=== PATIENT | female | born 1940 | race Caucasian/White ===

== ENCOUNTER 2019-01-23 13:27 | Inpatient (IN) ==
[2019-01-23] MEDS ORDERED: VANCOMYCIN 1 GM/NS 1 GM/250 ML IVPB IV ONE ×2 (13:43→20:00)
[2019-01-23] MEDS ORDERED: ZOSYN 3.375 GM in NS 50 ML IV ONE (13:43)
[2019-01-23] MEDS ORDERED: NS 1,000 ML IV ONE (13:46)
[2019-01-23] MEDS ORDERED: TYLENOL PR ONE ×2 (13:47→13:48)
[2019-01-23 14:01] LABS: ALLEN TEST YES; BE 9.8 mmoll (-3.0-3.0); BLOOD TYPE ARTERIAL; HCO3-(ACT) 32.5 mmoll (20.0-26.0); METHB 1.7 % (0.0-1.5); O2(CT) 18.2 mL/dL (15.0-23.0); O2HB 95.8 % (95.0-99.0); PO2(98.6) 242 mmHg (60-100); SAMPLE BLOOD; SAO2 99.8 % (95.0-100.0); THB 13.1 g/dL (11.5-17.4); pH(98.6) 7.42 (7.35-7.45)
[2019-01-23 14:02] LABS: MODALITY PRB; PCO2(98.6) 56 mmHg (35-45)
--- NOTE | 2019-01-23 14:23 | Diag Imaging Result Doc PS360 ---
EXAM: CHEST-PORTABLE INDICATION: fever TECHNIQUE: One view COMPARISON: 01/13/2019 FINDINGS: There is stable elevation of the right hemidiaphragm. No well-defined infiltrates are identified. There is no discrete pleural fluid collection or pneumothorax. There is stable cardiomegaly. IMPRESSION: Stable cardiomegaly and elevation of the right hemidiaphragm. No definite acute pathology by plain radiograph. Electronically signed by Golden Gruber 01/23/2019 2:21 PM
[2019-01-23 14:28] LABS: URINE SOURCE CATH
[2019-01-23 14:38] LABS: BILIRUBIN URINE NEGATIVE (NEGATIVE); BLOOD URINE TRACE (NEGATIVE); COLOR YELLOW; GLUCOSE URINE TRACE mg/dL (NEGATIVE); KETONE URINE TRACE mg/dL (NEGATIVE); LEUKOCYTES URINE NEGATIVE (NEGATIVE); NITRITE URINE NEGATIVE (NEGATIVE); PH URINE 7.5; PROTEIN URINE 100 mg/dL (NEGATIVE); SP GRAVITY URINE 1.007; TURBIDITY URINE CLEAR (CLEAR); UR EPITHELIAL CELLS <10 /HPF (<10); URINE BACTERIA NEGATIVE /HPF; URINE RBC <10 /HPF (<10); URINE WBC <10 /HPF (<10); UROBILINOGEN URINE NORMAL (NORMAL)
[2019-01-23 15:05] LABS: INR 1.01; PROTIME 14.1 Seconds (11.0-16.0)
[2019-01-23 15:06] LABS: ESTIMATED GFR > 60; PTT 35.7 Seconds (22.3-41.8)
[2019-01-23 15:12] LABS: AGAP 15; ALB/GLOB RATIO 1.2; ALBUMIN 3.6 g/dL (3.5-5.0); ALKALINE PHOSPHATASE 102 U/L (32-104); BUN 13 mg/dL (8-22); CALCIUM 9.1 mg/dL (8.8-10.2); CHLORIDE 88 mmol/L (98-107); CK PROFILE 46 U/L (24-173); COSMO 277; CREATININE 0.5 mg/dL (0.5-0.9); GLUCOSE 256 mg/dL (70-104); GOT 20 U/L (10-30); GPT 6 U/L (10-36); POTASSIUM 3.9 mmol/L (3.5-5.1); SODIUM 134 mmol/L (136-145); TCO2 31 mmol/L (25-35); TOTAL BILIRUBIN 0.66 mg/dL (0.20-1.00); TOTAL PROTEIN 6.7 g/dL (6.3-8.3)
[2019-01-23 15:24] LABS: BASO# 0.05 X1000 (0.0-0.2); BASO% 0.3 % (0.0-0.8); EOS# 0.03 X1000 (0.0-0.7); EOS% 0.2 % (0.0-10.0); HEMATOCRIT 36.8 % (37.0-47.0); HEMOGLOBIN 11.6 g/dL (12.0-16.0); IMM GRAN# 0.07 X1000 (0.0-0.04); IMM GRAN% 0.4 % (0.0-0.5); LYMPH# 1.79 X1000 (1.2-3.4); LYMPH% 9.7 % (20.5-51.1); MCHC 31.5 g/dL (33-37); MCV 88.7 FL (81-99); MONO# 0.85 X1000 (0.11-0.59); MONO% 4.6 % (1.7-9.3); NEUT# 15.58 X1000 (1.4-6.5); NEUT% 84.8 % (42.2-75.2); PLT 191 X1000 (130-400); RBC 4.15 XMIL (4.2-5.4); RDW 14.4 % (11.5-14.5); WBC 18.37 X1000 (4.8-10.8)
[2019-01-23 15:30] LABS: EOS 2 % (1-10); LYMPHS 14 % (21-51); MONO 2 % (1-9); SEGS 81 % (42-75)
--- NOTE | 2019-01-23 16:58 | PROVIDER DOCUMENTATION ---
This chart was entered by Lucina Evans Scribe, acting as scribe for Elmer Miranda MD. HPI-General Adult - General Chief Complaint: Shortness of Breath Stated Complaint: AMS, SOB Time Seen by Provider: 01/23/19 13:34 Source: family (Son), EMS Allergies/Adverse Reactions: Patient Allergies Allergy/AdvReac Type Severity Reaction Status Date / Time ciprofloxacin [From Cipro] Allergy Intermediate HIVES Verified 01/23/19 14:35 ciprofloxacin HCl * Allergy Intermediate HIVES Verified 01/23/19 14:35 [From Cipro] Sulfa (Sulfonamide Allergy Intermediate HIVES Verified 01/23/19 14:35 Antibiotics) Home Medications: Home Medication List Medication Instructions Recorded Confirmed Last Taken Type Febuxostat [Uloric] 40 mg PO DAILY 12/25/17 01/23/19 08/22/18 10:00 History Folic Acid 1 mg PO DAILY 12/25/17 01/23/19 08/22/18 10:00 History Insulin Aspart [Novolog Flexpen] 14 unit SQ QHS 12/25/17 01/23/19 08/21/18 19:30 History Omeprazole 40 mg PO DAILY 12/25/17 01/23/19 08/22/18 10:00 History Prednisone 5 mg PO DAILY 12/25/17 01/23/19 08/22/18 10:00 History Iron Carbonyl/Ascorbic Acid 1 tab PO DAILY #60 tab 12/30/17 01/23/19 08/22/18 10:00 Rx [Icar-C] Insulin Novolog 70/30 [Novolog Mix 17 unit SUBQ DAILY 08/22/18 01/23/19 08/22/18 10:00 History 70/30] Amiodarone [Cordarone] 200 mg PO DAILY 01/23/19 01/23/19 Unknown History Bupropion [Wellbutrin] 75 mg PO DAILY 01/23/19 01/23/19 Unknown History Hydrocodone Bit/Acetaminophen 1 tab PO TID 01/23/19 01/23/19 Unknown History [Hydrocodon-Acetaminophen 5-325] - History of Present Illness -Gen Adult Nature of Presenting Problems: 78 y/o obese female with history of diabetes, and pneumonia who presents by EMS with SOB, tachycardia, spitting up copious amounts of thick sputum, fever of 102.2, and room air sat of 83% on room air. Son states the patient was fine at 2100 hours last pm when he and his left. Son states he saw the patient again this am normal at 0800 then when he returned at 1100 the patient was very hot, confused, and SOB. EMS states blood sugar on arrival was 146 and O2 91% on 5 liters. Location of Pain/Injury: reports: generalized Onset/Duration: reports: other (1100) Timing: reports: still present Context/Activities at Onset: reports: light activity Modifying Factors: improves with: nothing Associated Symptoms: reports: cough, fever/chills, other (tachycardia) Similar Symptoms Previously?: No Recently seen or treated by another doctor?: No Review of Systems - Adult - REVIEW OF SYSTEMS - ADULT Constitutional: reports: fever, other (confused). denies: weight gain, weight loss Eyes: reports: no symptoms reported Ears, Nose, Mouth & Throat: reports: no symptoms reported Cardiovascular: reports: no symptoms reported Respiratory: reports: cough, shortness of breath, other (copious sputum) Gastrointestinal: denies: diarrhea, nausea, vomiting Genitourinary: reports: no symptoms reported Musculoskeletal: reports: no symptoms reported Integumentary: reports: no symptoms reported Neurological: reports: no symptoms reported Psychiatric: reports: no symptoms reported Endocrine: reports: no symptoms reported Hematologic/Lymphatic: reports: no symptoms reported Allergic/Immunologic: reports: no symptoms reported All Other Systems: Reviewed and Negative Past History - Adult - PAST MEDICAL HISTORY-ADULT Review of Records: reports: Old Records Reviewed, Medications Reviewed Major Childhood Illnesses: reports: denies history Cardiovascular: reports: A-Fib, HTN, hyperlipidemia Respiratory: reports: denies history Gastrointestinal: reports: diverticulosis, GERD, GI bleed Obstetrical/Gynecological: reports: denies history Genitourinary: reports: denies history Musculoskeletal: reports: arthritis Neurological: reports: denies history Endocrine/Immune: reports: Diabetes Other Conditions: reports: denies history - PRIOR SURGERIES/PROCEDURES Surgical/Procedure History: reports: recent surgery, appendectomy, cholecystectomy, orthopedic (extremity), joint replacement (total knee) - PRIOR HOSPITALIZATIONS Prior Hospitalizations: reports: for similar symptoms - IMMUNIZATION STATUS Childhood Immunizations: See Nurse Assessment Flu Vaccine: See Nurse Assessment - FAMILY HISTORY Family History: reviewed, not pertinent - SOCIAL HISTORY Smoking: denies Substance Use: none/never Physical Exam-General - PHYSICAL EXAM-ADULT Initial Vital Signs Reviewed: Yes - CONSTITUTIONAL General Appearance: alert, moderate distress, obese (morbidly) - EYES Eyes: PERRL/EOMI - HEAD, EARS, NOSE, MOUTH & THROAT HENMT: normocephalic/atraumatic - NECK Neck: full range of motion, supple - RESPIRATORY Respiratory: decreased breath sounds, rhonchi - CARDIOVASCULAR Cardiovascular: tachycardia - GASTROINTESTINAL (ABDOMEN) Abdominal Exam: tenderness (diffuse) - MUSCULOSKELETAL Back Exam: normal inspection, no CVA tenderness, no vertebral tenderness, other (no decubiti) Extremity: non-tender Peripheral Pulses: radial (R): 2+, radial (L): 2+ - SKIN Integumentary: normal color, normal turgor, warm/dry - NEUROLOGIC Neurologic: grossly normal - PSYCHIATRIC Psych/Mental Status: anxious Progress - PLAN OF CARE/RESULTS Progress/Plan/Lab Results: Vital Signs - 8 hr 01/23/19 13:30 Temperature 99.8 F H Pulse Rate 111 H Respiratory Rate 26 H Blood Pressure 189/98 O2 Sat by Pulse Oximetry 83 L Orders Category Date Time Status Dowd Cath Insertion ORDERED Care 01/23/19 13:43 Active Saline Loc NOW Care 01/23/19 13:34 Active CHEST-PORTABLE [RAD] Stat Exams 01/23/19 13:42 Ordered ABG [RESP] Routine Lab 01/23/19 13:44 Ordered BLOOD CULTURE [BLDCUL] Stat Lab 01/23/19 13:34 Uncollected CBC WITH DIFF [HEME] Stat Lab 01/23/19 13:34 Uncollected COMPREHENSIVE METABOLIC PANEL [CHEM] Stat Lab 01/23/19 13:34 Uncollected LACTATE, PLASMA [CHEM] Stat Lab 01/23/19 13:42 Uncollected URINALYSIS W/POSS RFLX CULT [URINALYSIS] Stat Lab 01/23/19 13:44 Uncollected Piperacillin/Tazobactam [Zosyn] 3.375 gm Med 01/23/19 13:43 Active 0.9% Sodium Chloride Inj [Ns] 50 ml IV NOW Vancomycin 1 gm/Ns Med 01/23/19 13:43 Active 1 gm in 250 ml IV NOW Pulse Oximetry Stat Oth 01/23/19 13:34 Active Result Diagrams: 01/23/19 13:52 01/23/19 13:52 - REASSESSMENT Reassessment #1 Time Reassessed: 17:15 Status: improving Reassessment Comment: repeat qdcy=118.5 - XRAY 1 XRAY Study: Chest Comparison with other Films: no changes (EXAM: CHEST-PORTABLE INDICATION: fever TECHNIQUE: One view COMPARISON: 01/13/2019 FINDINGS: There is stable elevation of the right hemidiaphragm. No well-defined infiltrates are identified. There is no discrete pleural fluid collection or pneumothorax. There is stable cardiomegaly. IMPRESSION: Stable cardiomegaly and elevation of the right hemidiaphragm. No definite acute pathology by plain radiograph. Electr onically signed by Golden Gruber 01/23/2019 2:21 PM) XRAY Interpretation: faint patchy lung infiltrates - CONSULTS/PCP/HOSPITALIST Notification #1 *Consult/PCP/Hospitalist*: Dr. Kidd, hospitalist Time Discussed: 17:20 Consult Disposition: Admit Departure - Departure Date of Disposition Decision: 01/23/19 Time of Disposition Decision: 17:24 DIAGNOSIS: Hypoxemia Pneumonia Qualifiers: Pneumonia type: due to unspecified organism Laterality: unspecified laterality Lung location: unspecified part of lung Qualified Code(s): J18.9 - Pneumonia, unspecified organism Disposition: ADMITTED INPATIENT 09 Certified Medical Emergency: Urgent Condition: Stable Referrals and Follow-Ups: Santos Young MD [Primary Care Provider] - - Critical Care Note This patient required my direct & personal management of CC.: Yes Total Time (mins): 65 Critical Care Statement: This patient required my direct personal management to treat or rule out processes, the absence of which, could potentiallly result in sudden, clinically significant life or limb threatening deterioration. Attestation - Physician/ JETT Attestation Patient care was provided by Advanced Practice Provider:: No The physician spent face to face time with patient:: Yes Advanced Practice Provider documentation review:: Supervising physician onsite and consulted in the evaluation and care of this patient. The physician did have a face to face encounter with the patient. This chart was documented by the indicated scribe, (Lucina Evans, Scrib e) and accurately reflects the services I performed and decisions made by me, Elmer Miranda MD, as attested by the provider's signature.
[2019-01-23] MEDS ORDERED: TYLENOL PO PRN (19:04)
[2019-01-23] MEDS ORDERED: VANCOMYCIN IV PER PHARMACY MISC SCH (19:04)
[2019-01-23] MEDS: DUONEB (A & A) INH SCH ×2 (19:32→23:05)
[2019-01-23] MEDS: NS 1,000 ML IV SCH (20:14)
[2019-01-23] MEDS: HUMALOG SUBQ SCH (20:15)
[2019-01-23] MEDS: LOVENOX SUBQ SCH (20:15)
[2019-01-23 20:40] LABS: URINE SOURCE CATH
[2019-01-23 20:45] LABS: BILIRUBIN URINE NEGATIVE (NEGATIVE); BLOOD URINE MODERATE (NEGATIVE); COLOR YELLOW; GLUCOSE URINE NEGATIVE (NEGATIVE); KETONE URINE TRACE mg/dL (NEGATIVE); LEUKOCYTES URINE LARGE (NEGATIVE); NITRITE URINE NEGATIVE (NEGATIVE); PH URINE 5.5; PROTEIN URINE 50 mg/dL (NEGATIVE); SP GRAVITY URINE 1.028; TURBIDITY URINE HAZY (CLEAR); UROBILINOGEN URINE NORMAL (NORMAL)
[2019-01-23 20:50] LABS: UR EPITHELIAL CELLS <10 /HPF (<10); URINE BACTERIA NEGATIVE /HPF; URINE RBC 20-40 /HPF (<10); URINE WBC TNTC /HPF (<10)
[2019-01-23 20:59] LABS: URINE CASTS NONE SEEN; URINE CRYSTALS NONE SEEN; URINE YEAST NONE SEEN
--- NOTE | 2019-01-23 21:51 | HISTORY AND PHYSICAL ---
CHIEF COMPLAINT: Dyspnea. HISTORY OF PRESENT ILLNESS: The patient is an 78-year-old female with history of morbid obesity, paroxysmal atrial fibrillation, diabetes, hypertension, hyperlipidemia, GERD, and questionable history of CHF. She presents with 6 days of symptoms. She initially began with sinus drainage and a nonproductive cough. Over the last day and a half, the cough has gotten significantly worse and is accompanied by progressive dyspnea. This morning, she began having significant production of dark brown sputum, and dyspnea progressed rapidly. She had some subjective fevers at home, and per her son who assists with the history, she became briefly confused, although this had resolved by the time they came to the ER. She denied nausea, vomiting, diarrhea, myalgias. Denied chest pain and diaphoresis. Denied night sweats. Because of her symptoms, she came to the ER for evaluation, and on presentation to the ED, the patient was found to be febrile, hypoxic with O2 saturations in the mid 80s. She was found to have leukocytosis. She was given initial treatment for presumed pneumonia. Chest x-ray was obtained but was a fairly poor quality film and did not show any definite infiltrate. We are asked to admit the patient for further evaluation. The patient denies any leg swelling. REVIEW OF SYSTEMS: Twelve-point review of systems negative except as per HPI. ALLERGIES: Ciprofloxacin and quinolones. PAST MEDICAL HISTORY: As per HPI. PAST SURGICAL HISTORY: Appendectomy, tonsillectomy, cholecystectomy, bilateral knee surgery, right humeral fracture repair, cataract surgery, left hand tendon repair, left femur fracture repair. SOCIAL HISTORY: The patient denies smoking, alcohol, or illicit drug use. FAMILY HISTORY: Father passed with heart failure. Mother also of unknown causes at 93 years old. LABORATORIES: WBC 18.3, hemoglobin 11.6, hematocrit 36.8, platelets 191,000. PT and INR unremarkable. ABG with pH 7.42, pCO2 of 56, pO2 of 242, O2 saturations 99 on 70% FiO2. Sodium 134, potassium 3.9, chloride 88, bicarb 31, BUN 13, creatinine 0.5, glucose 256, calcium 9.1, total bilirubin 0.66, AST 20, ALT 6, alkaline phosphatase 102. CK 46. Troponin 0.05. Total protein 6.7, albumin 3.6, lactate 1. Urinalysis unremarkable. IMAGING: Chest x-ray with stable cardiomegaly and elevation of the right hemidiaphragm. No definite acute pathology. On partial review by me, it appears to have very poor inspiration, and AP technique is somewhat limited by patient's body habitus. VITAL SIGNS: T-max 102.2 degrees, pulse 90, respirations 31, blood pressure 146/71 but has been as low as 81/68, O2 saturation currently 99% on 15 L. PHYSICAL EXAMINATION: GENERAL: No acute distress. Vitals as above. HEENT: Normocephalic, atraumatic. Moist mucous membranes. NECK: No cervical adenopathy. CARDIOVASCULAR: Regular rate, but the rhythm is bigeminy. No murmurs noted. PULMONARY: The patient's lungs are surprisingly clear within the limits of body habitus. Good air entry. No wheezing. ABDOMEN: Soft, nontender, nondistended. Bowel sounds present. EXTREMITIES: Peripheral pulses decreased but intact. No clubbing, cyanosis, or edema. No calf tenderness. No cords noted. NEUROLOGIC: Cranial nerves grossly intact. Globally weak but no focal deficits identified. PSYCHIATRIC: Asleep but easily arousable. Oriented x3. Normal mood and affect. Answers all questions appropriately and cooperative. SKIN: No new rashes or lesions identified. ASSESSMENT AND PLAN: 1. Sepsis, presumed pneumonia, [id number] hypoxic respiratory failure: Patient presenting with what clinically looks like pneumonia with fever, tachypnea, and increased oxygen requirements. No definite infiltrate on x-ray. We will obtain CT chest to clarify diagnosis and evaluate for other pathology. Started on vancomycin and Zosyn in the ED, which we will continue. Blood cultures obtained. Initial lactate negative. We will hydrate gently, given the questionable history of congestive heart failure. We will obtain echo to clarify if she actually has heart failure. Given intermittent mild hypotension in the setting of sepsis, we will watch closely in ICU overnight, but if blood pressure is stable overnight, then can likely go to the floor in the morning. Of note, the patient is on 2 to 3 L of oxygen at home. 2. Paroxysmal atrial fibrillation. Patient with paroxysmal atrial fibrillation by history. Her son reports that she has remained in normal sinus rhythm since being started on amiodarone. Rhythm currently bigeminy. Monitor on telemetry. Continue home amiodarone. 3. Diabetes mellitus. We will place on sliding scale insulin. Check hemoglobin A1c. Pattern blood sugars. 4. Hypertension. Son reports the patient has been on and off lisinopril-hydrochlorothiazide at home but has been taking it recently and took it this morning. We will hold for now, given intermittent hypotension in the ED. 5. Hyperlipidemia. The patient does not appear to be on a statin at home, but uncertain if the current medication list has been fully updated yet. We will check a lipid panel. 6. Morbid obesity and Pickwickian syndrome. We will residential substance abuse counselor the patient on diet and exercise once her acute illness has improved. Patient's ABG with what appears to be chronic hypercapnia. No history of significant smoking, so almost certainly Pickwickian syndrome. Continue to monitor respiratory status. 7. Gastroesophageal reflux disease. Continue PPI. 8. Hyponatremia, mild, asymptomatic. Will gently hydrate as above and monitor. 9. Deep vein thrombosis prophylaxis. Robby.
[2019-01-24] MEDS: ZOSYN 3.375 GM in NS 50 ML IV SCH ×4 (00:48→17:05)
[2019-01-24] MEDS: DUONEB (A & A) INH SCH ×6 (03:10→23:15)
[2019-01-24] MEDS: NORCO-5 PO PRN ×2 (03:41→22:07)
[2019-01-24 05:57] LABS: BASO# 0.05 X1000 (0.0-0.2); BASO% 0.3 % (0.0-0.8); EOS# 0.02 X1000 (0.0-0.7); EOS% 0.1 % (0.0-10.0); HEMATOCRIT 30.8 % (37.0-47.0); HEMOGLOBIN 9.6 g/dL (12.0-16.0); IMM GRAN# 0.08 X1000 (0.0-0.04); IMM GRAN% 0.5 % (0.0-0.5); LYMPH# 2.73 X1000 (1.2-3.4); LYMPH% 16.9 % (20.5-51.1); MCH 28.1 PG (27-31); MCHC 31.2 g/dL (33-37); MCV 90.1 FL (81-99); MONO# 0.79 X1000 (0.11-0.59); MONO% 4.9 % (1.7-9.3); MPV 11.3 FL (7.4-10.4); NEUT# 12.53 X1000 (1.4-6.5); NEUT% 77.3 % (42.2-75.2); PLT 199 X1000 (130-400); RBC 3.42 XMIL (4.2-5.4); RDW 14.6 % (11.5-14.5)
[2019-01-24 06:08] LABS: HEMOGLOBIN A1C 5.4 % (4.8-6.0)
[2019-01-24] MEDS: PRILOSEC PO SCH (06:11)
[2019-01-24] MEDS: HUMALOG SUBQ SCH ×4 (06:12→21:45)
[2019-01-24 06:30] LABS: CHOLESTEROL 127 mg/dL (0-200); HDL 57 mg/dL (45-65); LDL 55 mg/dL; TRIGLYCERIDES 76 mg/dL (35-135); VLDL 15 mg/dL
[2019-01-24 06:47] LABS: AGAP 15; ALB/GLOB RATIO 0.8; ALBUMIN 2.7 g/dL (3.5-5.0); ALKALINE PHOSPHATASE 76 U/L (32-104); BUN 19 mg/dL (8-22); CALCIUM 8.1 mg/dL (8.8-10.2); CHLORIDE 93 mmol/L (98-107); COSMO 278; CREATININE 0.6 mg/dL (0.5-0.9); ESTIMATED GFR > 60; GLUCOSE 162 mg/dL (70-104); GOT 10 U/L (10-30); GPT < 5 U/L (10-36); POTASSIUM 3.9 mmol/L (3.5-5.1); SODIUM 136 mmol/L (136-145); TCO2 28 mmol/L (25-35); TOTAL BILIRUBIN 0.51 mg/dL (0.20-1.00); TOTAL PROTEIN 6.2 g/dL (6.3-8.3)
[2019-01-24] MEDS: ULORIC PO SCH (08:47)
[2019-01-24] MEDS: CORDARONE PO SCH (08:47)
[2019-01-24] MEDS: PREDNISONE PO SCH (08:48)
[2019-01-24] MEDS: NS 1,000 ML IV SCH ×2 (08:48→22:08)
[2019-01-24] MEDS: WELLBUTRIN PO SCH (08:48)
--- NOTE | 2019-01-24 09:16 | Diag Imaging Result Doc PS360 ---
EXAM: CT THORAX W/O CONTRAST INDICATION: fever, hypoxia, ? pneumonia TECHNIQUE: This exam was performed using automated exposure control, adjustment of mA or kV according to patient size, and/or use of iterative reconstruction technique. COMPARISON: 11/25/2018 FINDINGS: There is stable chronic elevation of the right hemidiaphragm. There is chronic atelectasis and/or scarring involving the right lower lobe that has not changed. There is minimal subsegmental atelectasis at the left lung base that was not seen on the previous study. No airspace consolidations are appreciated, otherwise. There is no pleural fluid collection and no pneumothorax. There is extensive coronary artery atherosclerotic calcification and patchy aortic calcification. There is extensive mitral valve calcification. No significant mediastinal or hilar lymphadenopathy is appreciated. Review of the upper abdomen reveals a nodular liver contour suggesting possible cirrhosis, stable. IMPRESSION: 1.Chronic atelectasis and/or scarring involving the right lower lobe that is stable and minimal subsegmental atelectasis at the left lung base. 2.Incidental/nonacute findings detailed above. No definite acute pathology, otherwise. Electronically signed by Golden Gruber 01/24/2019 9:13 AM
--- NOTE | 2019-01-24 13:53 | PROGRESS NOTE ---
DATE: 01/24/2019 INTERVAL HISTORY: The patient with no further fever. Her oxygen requirements and subjective dyspnea significantly improved. On discussion with nursing, patient did have some mild confusion overnight but this appears to be largely resolved at this point. No new complaints. No other acute events overnight. REVIEW OF SYSTEMS: Twelve point review of systems negative except as per interval history. LABS: WBCs 16.2, hemoglobin 9.6, hematocrit 30.8, platelets 199,000. Sodium 136, potassium 3.9, BUN 19, creatinine 0.6, and glucose 162. IMAGING: CT of chest, chronic atelectasis and/or scarring along the right lower lobe that is stable, minimal atelectasis of the left lung base but no definite acute pathology. Nodular liver suggesting possible cirrhosis. VITALS: T-max 98.8, pulse 79, respirations 18, blood pressure 110/45, O2 saturation is 99% on 2 L by nasal cannula. PHYSICAL EXAMINATION: General: No acute distress. Vitals: As above. HEENT: Normocephalic, atraumatic. Moist mucous membranes. No cervical adenopathy. Cardiovascular: Regular rate and rhythm. Currently no murmurs noted. Pulmonary: Remained clear to auscultation within the limits of the body habitus. Abdomen: Soft, nontender, nondistended. Bowel sounds positive. Extremities: Peripheral pulses decreased but intact. No clubbing, cyanosis, or edema. Neurologic: Cranial nerves grossly intact. Globally weak but no focal deficits. Psychiatric: Awake, alert, oriented x3. Normal mood and affect. Cooperative and conversant. Skin: No new rash or lesions identified. ASSESSMENT AND PLAN: 1. Sepsis, presumed pneumonia, acute on chronic hypoxic respiratory failure: The patient presenting with what clinically appeared to be pneumonia with fever, tachypnea, leukocytosis, and increased oxygen requirements. The patient was started on vancomycin and Zosyn in the emergency department, which were continued. The patient does appear to have improved with this treatment overnight but neither chest x-ray nor CT showing any definite pneumonia. Given lack of diagnostic certainty, we will obtain CTA to rule out pulmonary thromboembolism as a cause of her symptoms. The patient is on 2 to 3 L of oxygen at home, which she is actually back down to now. 2. Paroxysmal atrial fibrillation. Patient with paroxysmal atrial fibrillation by history. Has been largely normal sinus rhythm with occasional bigeminy here. Continue home amiodarone. 3. Diabetes mellitus. A1c of 5.4. Continue on sliding scale insulin and monitor. 4. Hypertension. The patient reports taking lisinopril/hydrochlorothiazide at home. Has had mild hypotension here but has not required pressors. Continue gentle hydration. Continue holding home blood pressure medications. 5. Hyperlipidemia. Patient with hyperlipidemia by history but does not appear to be on a statin. Lipid panel essentially normal so this history may be in error. 6. Morbid obesity and pickwickian syndrome. Patient counseled on the importance of weight loss. Patient's admission ABG with what appears to be chronic hypercapnia. No history of significant smoking so appears to be pickwickian syndrome. 7. Gastroesophageal reflux disease. Continue proton pump inhibitor. 8. Hyponatremia, mild, asymptomatic, now resolved with intravenous fluids overnight. 9. Deep vein thrombosis prophylaxis. Lovenox. 10. Possible cirrhosis. The patient with no known history of alcohol abuse but certainly at risk for fatty liver. Given possible cirrhosis identified on CT, we will obtain ultrasound of the liver and monitor. If significant ascites seen, then spontaneous bacterial peritonitis could have been contributing to her sepsis noted on admission and may need further evaluation. LUBNA
--- NOTE | 2019-01-24 15:59 | Diag Imaging Result Doc PS360 ---
EXAM: CT ANGIOGRM PULMONARY ARTERIES INDICATION: dyspnea, hypoxia TECHNIQUE: This exam was performed using automated exposure control, adjustment of mA or kV according to patient size, and/or use of iterative reconstruction technique. Thin section axial images and 3-D MIPS were obtained. COMPARISON: Very recent CT chest without contrast dated 01/23/2019 FINDINGS: There is no evidence of pulmonary embolism. There is no evidence of aortic dissection or aneurysm. The heart and mediastinum are stable as compared to the very recent prior study. Chronic atelectasis in the right lower lobe and milder subsegmental atelectasis at the left lung base is essentially stable as compared to the recent prior study. No new consolidation is identified. Limited views of the upper abdomen are also stable. IMPRESSION: No evidence of pulmonary embolism. Stable chest as compared to the very recent unenhanced CT, otherwise. Electronically signed by Golden Gruber 01/24/2019 3:56 PM
--- NOTE | 2019-01-24 16:08 | Diag Imaging Result Doc PS360 ---
EXAM: US ABDOMEN-COMPLETE INDICATION: ?Lugo/cirrhosis COMPARISON: 12/29/2017 FINDINGS: Note that body habitus has significantly limited the diagnostic quality of this study. There has been a prior cholecystectomy. The common bile duct is normal in diameter. The contour of the liver appears somewhat nodular suggesting possible cirrhosis. The liver is difficult to acoustically penetrate. This is probably a combination of body habitus and at least some degree of hepatic steatosis. Portal venous flow is hepatopetal. The pancreas is obscured. Much of the aorta and IVC are obscured. The visualized portions are unremarkable. The spleen is unremarkable. The right kidney is obscured. The left kidney is grossly unremarkable as imaged. IMPRESSION: 1.Significantly limited study due to body habitus. 2.Liver with a vaguely nodular contour suggesting possible cirrhosis and poor acoustic penetration which could indicate at least mild hepatic steatosis. Electronically signed by Golden Gruber 01/24/2019 4:06 PM
[2019-01-24] MEDS: LOVENOX SUBQ SCH ×2 (17:05→18:30)
--- NOTE | 2019-01-24 18:10 | ECHO REPORT ---
ORDER DATE: 01/23/2019 INDICATIONS: Morbid obesity and hypertension. The patient weighs 250 pounds. Definity was added to the study to optimize visualization of the endocardium. M-MODE MEASUREMENTS: Left ventricle end diastole: 4.1 cm. Left ventricle end systole: 2.6 cm. Posterior wall: 1.0 cm. Interventricular septum: 1.0 cm. Left atrium: Not optimally visualized. The diameter appears to be 4.4. SUMMARY OF 2-DIMENSIONAL IMAGIN. The left ventricular chamber is normal. Ejection fraction is estimated at 65%. No wall motion abnormalities noted. 2. The mitral annulus was densely calcified. 3. The pulsed wave Doppler of mitral inflow shows reversal of E/A ratio at 0.7. 4. Tissue Doppler of septal and lateral mitral annulus appears to be normal. 5. The aortic valve is calcified with very mild degree of stenosis. The maximum gradient is 19 mm, mean gradient 9 mm. 6. The Aortic valve area is probably around 1.3 to 1.5 cm squared. 7. Pulmonic valve is unremarkable. 8. Tricuspid valve also appears to be unremarkable. 9. Pulmonary pressure seems to be within normal range. 10.Pulmonary pressure appears to be normal. 11.There is no pericardial effusion, masses or thrombus. IMPRESSION: In summary, the study shows: 1. Excellent left ventricular systolic function. Definity was used to opacify the left ventricular chamber. 2. Dense calcification of the mitral annulus with no significant regurgitation. 3. Diastolic function probably normal. 4. Pulmonary pressure probably normal. Clinical correlation recommended. cc: Yannick De Guzman MD MTDD
[2019-01-25] MEDS: ZOSYN 3.375 GM in NS 50 ML IV SCH ×3 (00:32→12:35)
[2019-01-25] MEDS: DUONEB (A & A) INH SCH ×4 (03:20→15:47)
[2019-01-25] MEDS: HUMALOG SUBQ SCH ×2 (06:40→12:22)
[2019-01-25] MEDS: PRILOSEC PO SCH (06:41)
[2019-01-25 07:29] LABS: BASO# 0.02 X1000 (0.0-0.2); BASO% 0.2 % (0.0-0.8); EOS# 0.06 X1000 (0.0-0.7); EOS% 0.6 % (0.0-10.0); HEMATOCRIT 29.8 % (37.0-47.0); IMM GRAN# 0.02 X1000 (0.0-0.04); IMM GRAN% 0.2 % (0.0-0.5); LYMPH# 1.31 X1000 (1.2-3.4); LYMPH% 14.1 % (20.5-51.1); MCH 27.1 PG (27-31); MCHC 30.2 g/dL (33-37); MCV 89.8 FL (81-99); MONO# 0.45 X1000 (0.11-0.59); MONO% 4.8 % (1.7-9.3); NEUT# 7.44 X1000 (1.4-6.5); NEUT% 80.1 % (42.2-75.2); PLT 170 X1000 (130-400); RBC 3.32 XMIL (4.2-5.4); RDW 13.9 % (11.5-14.5)
[2019-01-25 07:48] LABS: AGAP 10; BUN 13 mg/dL (8-22); CALCIUM 8.4 mg/dL (8.8-10.2); CHLORIDE 94 mmol/L (98-107); COSMO 272; CREATININE 0.7 mg/dL (0.5-0.9); ESTIMATED GFR > 60; GLUCOSE 157 mg/dL (70-104); POTASSIUM 3.6 mmol/L (3.5-5.1); SODIUM 134 mmol/L (136-145); TCO2 30 mmol/L (25-35)
[2019-01-25] MEDS ORDERED: VANCOMYCIN 1,800 MG in NS 250 ML IV SCH (08:00)
[2019-01-25] MEDS: CORDARONE PO SCH (08:31)
[2019-01-25] MEDS: ULORIC PO SCH (08:31)
[2019-01-25] MEDS: WELLBUTRIN PO SCH (08:31)
[2019-01-25] MEDS: PREDNISONE PO SCH (08:31)
--- NOTE | 2019-01-25 10:52 | EKG Report ---
Test Performed on : 01/23/2019 1:40:50 PM Test Reason : POSS SEPSIS Blood Pressure : / mmHG Vent. Rate : 108 BPM Atrial Rate : 108 BPM P-R Int : 172 ms QRS Dur : 112 ms QT Int : 348 ms P-R-T Axes : 044 006 028 degrees QTc Int : 466 ms Sinus tachycardia. with premature atrial complexes. Nonspecific ST abnormality Abnormal ECG When compared with ECG of 13-JAN-2019 18:23, (Unconfirmed) premature atrial complexes. are now present Vent. rate has increased BY 42 BPM Nonspecific T wave abnormality no longer evident in Anterior leads Unconfirmed Result
[2019-01-25 11:56] VITALS: BP 159/60
--- NOTE | 2019-01-25 15:30 | DISCHARGE SUMMARY ---
ADMISSION DATE: 01/23/2019 DISCHARGE DATE: 01/25/2019 CONSULTATIONS: None. PERTINENT PROCEDURES: 1. Chest CT: Chronic atelectasis and/or scarring involving the right lower lobe that is stable and minimal subsegmental atelectasis at the left lung base. 2. Echocardiogram: EF 65% with no wall motion abnormality. 3. Abdominal ultrasound, limited study due to body habitus: Liver with vaguely nodular contour suggesting possible cirrhosis and/or poor acoustic penetration which can indicate at least mild hepatic steatosis. 4. Pulmonary arteriogram: No evidence of PE. Stable chest compared to a very recent unenhanced CT otherwise. DISCHARGE DIAGNOSES: 1. Sepsis, presumed pneumonia, acute on chronic hypoxemic respiratory failure. The patient upon admission was febrile, tachycardic, with leukocytosis with increased oxygen requirements. She was initiated on broad-spectrum antibiotics and placed on supplemental O2. A CT of the chest was done to rule out any PE. 2. Paroxysmal atrial fibrillation. Continue her home amiodarone. 3. Diabetes mellitus. Hemoglobin A1c of 5.4. Continue home regimen, diabetic diet. 4. Hypertension. Initially, home medications were held secondary to hypotension related to her sepsis. She briefly required pressors. Her home medications will be initiated back as appropriate. 5. Hyperlipidemia. The patient is not on a statin. Lipid profile was essentially normal. 6. Morbid obesity and pickwickian syndrome. Patient was counseled on the importance of weight loss. Her ABG done upon admission shows a chronic hypercapnia with no significant history of smoking. 7. Gastroesophageal reflux disease (GERD). Continue PPI. 8. Hyponatremia, mild, asymptomatic, resolved with IV fluids. 9. Probable cirrhosis. No history of alcohol abuse but is at risk for fatty liver, given her body habitus. HOSPITAL COURSE: Briefly, Ms. Butler is an 78-year-old female with a history of morbid obesity, paroxysmal atrial fibrillation, diabetes mellitus, hypertension, hyperlipidemia, GERD, who presented to the ER with 6 days of symptoms that began with sinus drainage, nonproductive cough. She reported over the last 2 days an increased in dyspnea as well as production of a dark brown sputum, subjective fevers. She had a brief moment of confusion that had resolved by the time she came to the ED. Workup in the ED showed probable sepsis secondary to presumed pneumonia, acute on chronic hypoxemic respiratory failure. Upon admission, she was hypotensive, febrile, tachycardic with leukocytosis, and required increased oxygen. She was started on broad-spectrum antibiotics. She was hydrated appropriately. On pressors for a brief time for hypotension. Chest x-ray and chest CT did not show any definite pneumonia. They did follow up with a CTA of the chest to rule out PE. It was also negative. Her oxygen requirements have gone down. She is now normotensive. Her white count has gone back to normal. It is presumed that she has pickwickian syndrome, given her ABGs showed chronic hypercapnia. She has no significant history of smoking. She was educated and counseled on the importance of weight loss and exercise. They did go ahead and do a CT of the abdomen that showed probable cirrhosis and they went ahead and obtained an ultrasound of the liver to rule out any ascites. The liver had a vaguely nodular contour suggesting possible cirrhosis or poor acoustic penetration, which could indicate at least mild hepatic steatosis. Again, patient was educated on diet and exercise. She has had a stable hospital course and has improved with hydration and antibiotics, and she will be discharged back home today. VITAL SIGNS: Temperature is 97.2 degrees, heart rate 74, respirations 17, blood pressure 154/47, O2 is 97%. DISCHARGE DIET: Diabetic. DISCHARGE MEDICATIONS: 1. NovoLog FlexPen 14 units subcutaneous at bedtime. 2. Amiodarone 200 mg p.o. daily. 3. Folic acid 1 mg p.o. daily. 4. Otego 5/325 mg 1 tablet p.o. t.i.d. 5. NovoLog mix 70/30, 17 units subcutaneous daily. 6. Prilosec 40 mg p.o. daily. 7. Uloric 40 mg p.o. daily. 8. Wellbutrin 75 mg p.o. daily. 9. Doxycycline 100 mg p.o. b.i.d. for 1 week. DISPOSITION: Ms. Butler is being discharged back home. DISCHARGE INSTRUCTIONS AND FOLLOW-UP: She is to take all medications as prescribed, as well as her antibiotics. She will need to follow up with her primary care provider, Dr. Santos Young, within the week. She can return to the ED or call 911 for any worsening of symptoms. Dictated by YUN Hollis for Mj Kidd MD cc: Santos Young MD
== END 2019-01-25 16:15 | disposition home or self-care (01) | DRG 871 ==
LOC: SUPCPDRO → ED 13:27 → ICU 18:23 → 3N 01-24 21:56
PROVIDERS: ATTEND Internal Medicine
CPT/HCPCS: 71010; 71045; 71250; 71275; 76700; 80048; 80053; 80061; 81001; 82550; 82805; 82948; 83036; 83605; 84484; 85025; 85610; 85730; 87040; 87088; 87275; 87276; 87804; 93005; 93306; 94640; 94761; 94799; 97110; 97162; A9270; C8929; J1650; J1815; J2543; J3370; J7030; J7050; J7506; J7512; Q9957; Q9967; XXXXX